=== PATIENT | male | born 1995 | race Caucasian/White ===

== ENCOUNTER 2017-01-29 10:45 | Emergency (ER) | payer OTHER | END 2017-01-29 12:53 | disposition home or self-care (01) | LOC: FER 10:45 | DX: B34.9 Viral infection, unspecified (principal); F41.9 Anxiety disorder, unspecified; F32.9 Major depressive disorder, single episode, unspecified | CPT/HCPCS: 87804; 87899; 99283 ==

== ENCOUNTER 2020-12-07 13:37 | Emergency (ER) | payer OTHER ==
[~2020-12-07 13:37] MED LIST: BENTYL10 MG PO; MOBIC7.5 MG PO; PEPCID AC20 MG PO
[2020-12-07 15:17] LABS: BASOPHIL 0.6 % (0-2); HCT 49.1 % (42.0-52.0); HGB 16.6 g/dl (13.2-18.0); LYMPHOCYTE 29.5 % (15-48); MCH 30.8 pg (25.0-31.0); MCHC 33.8 g/dL (32.0-36.0); MCV 91.1 fL (78.0-100.0); MPV 10.3 fL (6.0-9.5); NEUTROPHIL 58.7 % (41-80); NRBC 0; PLT 216 K/uL (150-400); RBC 5.39 M/uL (4.70-6.00); WBC 5.4 K/uL (4.0-10.5)
[2020-12-07 15:21] LABS: BILIRUBIN NEGATIVE (NEGATIVE); BLOOD NEGATIVE Ery/uL (NEGATIVE); CLARITY CLEAR (CLEAR); COLOR YELLOW (YELLOW); GLUCOSE (U) NORMAL (NORMAL); LEUKOCYTES NEGATIVE Leu/uL (NEGATIVE); NITRITE NEGATIVE (NEGATIVE); PROTEIN NEGATIVE (NEGATIVE); UROBILINOGEN 0.2 mg/dL (0.2-1.0); pH 7.5 (5.0-9.0)
[2020-12-07] MEDS ORDERED: ZOFRAN4 M1 PO (15:30)
[2020-12-07 15:48] LABS: ALBUMIN 4.2 g/dL (3.4-5.0); BILIRUBIN - TOTAL 0.4 mg/dL (0.2-1.0); BUN/CREAT RATIO (CALC) 11.5 RATIO; CREATININE 0.87 mg/dL (0.67-1.17); GLOBULIN (CALCULATION) 3.7 g/dL; POTASSIUM 4.3 mmol/L (3.5-5.1); TOTAL PROTEIN 7.9 g/dL (6.4-8.2)
== END 2020-12-07 17:00 | disposition home or self-care (01) ==
LOC: FER 13:37
PROVIDERS: Nurse Practitioner Family
DX: R10.84 Generalized abdominal pain (principal); R11.2 Nausea with vomiting, unspecified; R19.7 Diarrhea, unspecified; R51.9 Headache, unspecified; M79.10 Myalgia, unspecified site; K21.9 Gastro-esophageal reflux disease without esophagitis; F43.10 Post-traumatic stress disorder, unspecified; Z87.19 Personal history of other diseases of the digestive system; Z79.899 Other long term (current) drug therapy; Z20.822 Contact with and (suspected) exposure to COVID-19
CPT/HCPCS: 36415; 71046; 80053; 81003; 82728; 83605; 84145; 85025; J7030; U0002

== ENCOUNTER 2022-01-10 11:51 | Emergency (ER) | payer OTHER ==
[~2022-01-10 11:51] MED LIST changes: +ZOFRAN4 M1 PO
[2022-01-10 12:52] LABS: BASOPHIL 0.6 % (0-2); EOSINOPHIL 1.4 % (0-5); HCT 48.8 % (42.0-52.0); HGB 17.3 g/dl (13.2-18.0); LYMPHOCYTE 27.3 % (15-48); MCH 30.8 pg (25.0-31.0); MCHC 35.5 g/dL (32.0-36.0); MPV 10.1 fL (6.0-9.5); NEUTROPHIL 62.2 % (41-80); NRBC 0; PLT 250 K/uL (150-400); RBC 5.61 M/uL (4.70-6.00); RDW 11.6 % (11.5-14.0); WBC 6.3 K/uL (4.0-10.5)
[2022-01-10 13:33] LABS: CORONAVIRUS 2019 SARS-COV-2 NEGATIVE (NEGATIVE); INFLUENZA A NAA NEGATIVE (NEGATIVE)
[2022-01-10 13:36] LABS: BUN 8 mg/dL (7-18); BUN/CREAT RATIO (CALC) 9.1 RATIO; CHLORIDE 100 mmol/L (98-107); CO2 (BICARBONATE) 27 mmol/L (21-32); CREATININE 0.88 mg/dL (0.67-1.17); GLUCOSE 90 mg/dL (74-106); POTASSIUM 3.9 mmol/L (3.5-5.1)
[2022-01-10 15:37] LABS: AMPHETAMINES NEGATIVE (NEGATIVE); BARBITURATES NEGATIVE (NEGATIVE); BILIRUBIN NEGATIVE (NEGATIVE); BLOOD NEGATIVE Ery/uL (NEGATIVE); CLARITY CLEAR (CLEAR); COLOR YELLOW (YELLOW); ECSTASY (MDMA) NEGATIVE (NEGATIVE); GLUCOSE (U) NORMAL (NORMAL); LEUKOCYTES NEGATIVE Leu/uL (NEGATIVE); MARIJUANA (THC) POSITIVE (NEGATIVE); METHADONE NEGATIVE (NEGATIVE); NITRITE NEGATIVE (NEGATIVE); OPIATES NEGATIVE (NEGATIVE); OXYCODONE NEGATIVE (NEGATIVE); PROTEIN NEGATIVE (NEGATIVE); SPECIFIC GRAVITY 1.015 (1.001-1.030); UROBILINOGEN 0.2 mg/dL (0.2-1.0)
== END 2022-01-10 15:19 | disposition home or self-care (01) ==
LOC: FER 11:51
PROVIDERS: Nurse Practitioner Family
DX: R07.89 Other chest pain (principal); Z20.822 Contact with and (suspected) exposure to COVID-19
CPT/HCPCS: 36415; 71045; 80048; 80305; 81003; 84484; 85025; 93005; U0002